=== PATIENT | female | born 1985 | race Caucasian/White ===

== ENCOUNTER 2022-09-20 21:37 | Emergency (ER) | payer MEDICAID, SELFPAY ==
[2022-09-20 21:49] VITALS: BP 133/74; PULSE 119; RESP 18; TEMP 36.6; O2SAT 99; BMI 27.6
--- NOTE | 2022-09-20 23:11 | XRR_ITS ---
PROCEDURE INFORMATION: Exam: XR Right Knee Exam date and time: 09/20/2022 11:28 PM Age: 37 years old Clinical indication: Injury or trauma; Fall; Blunt trauma; Knee; Right TECHNIQUE: Imaging protocol: Radiologic exam of the Right knee. Views: 1 or 2 views. COMPARISON: CR (LOW EXM, ) 09/20/2022 11:24 PM FINDINGS: Bones/joints: Normal. Soft tissues: Normal. XR/XR knee RT 1-2V [id number] IMPRESSION: No acute findings.
--- NOTE | 2022-09-20 23:11 | XRR_ITS ---
PROCEDURE INFORMATION: Exam: XR Right Tibia and Fibula Exam date and time: 09/20/2022 11:24 PM Age: 37 years old Clinical indication: Injury or trauma; Fall; Blunt trauma; Lower leg; Right TECHNIQUE: Imaging protocol: Radiologic exam of the Right tibia and fibula. Views: 2 views. COMPARISON: CR (LOW EXM, ) 09/20/2022 11:21 PM FINDINGS: Bones/joints: Normal. Soft tissues: Normal. XR/XR tibia fibula RT 2V [id number] IMPRESSION: No acute findings.
--- NOTE | 2022-09-20 23:11 | XRR_ITS ---
PROCEDURE INFORMATION: Exam: XR Right Ankle Exam date and time: 09/20/2022 11:30 PM Age: 37 years old Clinical indication: Injury or trauma; Fall; Blunt trauma; Ankle; Right; Injury date: 09/19/2022 TECHNIQUE: Imaging protocol: Radiologic exam of the Right ankle. Views: 3 or more views. COMPARISON: CR (LOW EXM, ) 09/20/2022 11:24 PM FINDINGS: Bones/joints: Normal. Soft tissues: Soft tissue swelling overlies the lateral malleolus. XR/XR ankle RT min 3V* [id number] IMPRESSION: There are no acute osseous findings.
--- NOTE | 2022-09-20 23:11 | XRR_ITS ---
PROCEDURE INFORMATION: Exam: XR Right Foot Exam date and time: 09/20/2022 11:21 PM Age: 37 years old Clinical indication: Injury or trauma; Fall; Blunt trauma; Foot; Right; Injury date: 09/19/2022 TECHNIQUE: Imaging protocol: Radiologic exam of the Right foot. Views: 3 or more views. COMPARISON: No relevant prior studies available. FINDINGS: Bones/joints: Normal. Soft tissues: Normal. XR/XR foot RT min 3V* [id number] IMPRESSION: No acute findings.
[2022-09-20] MEDS: ketorolac 10 mg Tablet PO (23:33)
[2022-09-20] MEDS: HYDROcodone-acetaminophen 5-325 mg Tablet 1 TAB PO (23:33)
--- NOTE | 2022-09-21 00:49 | W.ED.EXTPRO ---
Documented by User: RIMMA Bryant 09/21/22 01:44 HPI - Extremity Problem General: Chief complaint: Extremity Injury, Lower Stated complaint: right leg injury Time Seen by Provider: 09/20/22 22:55 History of Present Illness: Patient is a 37-year-old female that presents to the emergency department with complaints of right lower extremity pain. Patient reports that she twisted and fell while walking up a set of stairs. She reports hearing multiple pops in her right lower extremity Event occurred at 1430 today. Patient arrives in the emergency department with significant swelling and ecchymosis to the right lower extremity. Ecchymosis extends from just above the ankle down into the foot. Swelling is evident from mid tibia through foot No open wounds Patient is able to wiggle her toes and does have cap refill less than 2 seconds Denies previous injury to this extremity Associated symptoms: Deny chest pain, fever(s) or rash Review of Systems General: Reports: 10 or more systems reviewed and unremarkable except in HPI and below Const: Denies: fever(s), chills, change in appetite, change in weight, fatigue or malaise Eyes: Denies: change in vision, eye discomfort, eye discharge or eye redness ENMT: Denies: throat pain, enlarged tonsils, odynophagia, hoarseness, ear or mastoid pain, ear discharge, change in hearing, tinnitus, nasal discharge, nasal congestion, post nasal drip or sinus pain Card: Denies: chest pain, palpitations, irregular heart rhythm, edema, dyspnea on exertion, orthopnea or leg pain with exertion Resp: Denies: dyspnea, productive cough, non-productive cough, wheezing, stridor or chest congestion GI: Denies: abdominal pain, nausea, vomiting, dysphagia, diarrhea, constipation, bloating, GI cramping or hematochezia : Denies: flank pain, difficulty voiding, dysuria, urinary frequency, urinary urgency, urinary hesitancy, oliguria or hematuria Musc: Denies: neck pain, back pain, extremity pain, joint pain, joint swelling, joint redness, joint warmth or muscle weakness Skin/Breast: Denies: rash, pruritus, erythema, photosensitivity or new lesions Neuro: Denies: headache(s), numbness in extremities, weakness in extremities, sensory changes, lack of coordination, difficulty walking, frequent falls, dizziness, confusion, Slurred speech present, difficulty communicating thoughts, seizure-like activity or involuntary movements Endo: Denies: polyuria, polydipsia or tired all the time Danny/Lymph: Denies: easy bruising or easy bleeding Physical Exam Const: COMMON NORMALS: no acute distress, average body habitus, patient oriented x3, no limitations, healthy appearing, alert and well nourished GENERAL APPEARANCE: cooperative, comfortable and well developed; not in distress and not anxious ORIENTATION/CONSCIOUSNESS: Yes awake, Yes oriented to person, Yes oriented to place and Yes oriented to time Neck/C-Spine: COMMON NORMALS: full ROM, supple, no meningeal signs and no JVD GENERAL: Yes normal visual inspection CERVICAL SPINE: Yes cervical ROM normal Chest: COMMONS NORMALS: normal inspection of the chest Breast/axilla inspection: Yes no chest deformity, asymmetry, normal contours, no nodules, masses, tenderness Resp: COMMON NORMALS: normal respiratory effort, No retractions, No use of accessory muscles and clear to auscultation bilaterally EFFORT & INSPECTION: Yes able to speak in complete sentences, Yes symmetric chest movement, No abnormal respiratory pattern, No tachypneic and No respiratory distress AUSCULTATION: clear to auscultation bilaterally Cardio: COMMON NORMALS: no JVD, regular rate, regular rhythm and Peripheral pulses 2+ throughout RATE: regular rate RHYTHM: regular rhythm PERIPHERAL PULSES: Peripheral pulses 2+ throughout GI: COMMON NORMALS: Normal to inspection, nondistended, normoactive bowel sounds present, Soft to palpation and non-tender INSPECTION: Yes normal to inspection PALPATION: Yes Soft to palpation Back/Pelvis: COMMON NORMALS: thoracic and lumbar spine normal to inspection, no thoracic nor lumbar tenderness, thoraco-lumbar ROM normal and straight leg raise negative bilaterally GENERAL BACK: No ecchymosis THORACIC SPINE/UPPER BACK: Yes normal to inspection LUMBAR SPINE/LOWER BACK: Yes normal to inspection and Yes straight leg raise negative bilaterally Extremity: NARRATIVE EXTREMITY EXAM: Right lower extremity: Skin is clean and dry Ecchymosis and edema noted to the right lower extremity from mid tibia through the foot No wounds present Patient does have tenderness to palpation over the knee, tibia, ankle, foot Patient is able to actively range of motion knee Minimal range of motion of the ankle due to tightness and pain Patient is able to dorsiflex the foot. Difficulty with plantarflexion Patient is able to dorsiflex great toe Sensation is intact but altered. To medial, lateral, dorsal, plantar surface of the foot and first webspace DP pulses palpable and cap refill is less than 3 seconds GENERAL: Yes normal exam except as noted Neuro: COMMON NORMALS: patient oriented x3 SENSORIUM/ORIENTATION: Yes alert, Yes oriented to person, Yes oriented to place and Yes oriented to time MENINGEAL SIGNS: Yes no meningeal signs Psych: COMMON NORMALS: mental status grossly normal, Normal thought process present, cooperative, normal affect, speech normal and activity/motor behavior normal SPEECH: Yes normal speech THOUGHT PROCESS: Normal thought process present Skin: COMMON NORMALS: no rashes or lesions noted, no wounds, turgor normal, no jaundice, no petechiae and no mottling GENERAL SKIN EXAM: no rashes or lesions noted and turgor normal Course Vital Signs: Vital signs: Vital Signs Temperature 98 F 09/20/22 21:49 Pulse Rate 119 H 09/20/22 21:49 Respiratory Rate 18 09/20/22 21:49 Blood Pressure 133/74 09/20/22 21:49 Pulse Oximetry 99 09/20/22 21:49 MDM - Extremity (Nontraumatic) Medical Decision Making Patient was evaluated in the emergency department today for complaints of right ankle and foot pain. Onset at 1430 when she had a fall. She reports her leg/foot got stuck on a step. Patient has differential diagnosis includes knee, tibia, ankle, foot fracture or dislocation; ligamentous injury, soft tissue contusions Patient was treated with [place] and Toradol here in the emergency department. She was moved to a room and provided bed and ice bag. I have advised nursing staff to elevate the extremity. Patient underwent XR imaging of the right lower extremity that included knee, tibia, ankle, foot. Imaging reveals no acute findings. Patient is quite edematous and ecchymotic at this time. Her compartments are still compressible and we are able to wrinkle her skin. We will be sending her home with [place] for several days. I talked with her about putting her in a removable boot but honestly I want her to range of motion the joints. She will discharged with crutches and crutch training. I put in a case management request for orthopedic follow-up. She should follow-up if she is no better in 7 to 14 days. Patient is to return to the emergency department for new concerning or worsening symptoms Lab Data Radiology Impressions Ankle X-Ray 09/20/22 23:11 IMPRESSION: There are no acute osseous findings. Foot X-Ray 09/20/22 23:11 IMPRESSION: No acute findings. Knee X-Ray 09/20/22 23:11 IMPRESSION: No acute findings. Tibia/Fibula X-Ray 09/20/22 23:11 IMPRESSION: No acute findings. Discharge Plan Discharge Patient Disposition: Home Clinical Impression: Contusion of soft tissue, Sprain and strain Condition: Stable Prescriptions: New hydrocodone-acetaminophen 5-325 mg tablet 1 tab PO Q8H PRN (Reason: pain) Qty: 7 0RF ketorolac 10 mg tablet 10 mg PO TID PRN (Reason: pain) 5 Days Qty: 15 0RF Discharge Orders: Discharge ED (Routine); Ordered 09/21/22 Ordered By: Yamile Barker Referrals: Clifton Rios Jr, MD [Primary Care Provider] - Discharge Diet: Advance as tolerated Discharge Activity: Resume usual activity Patient Instructions: Hydrocodone/Acetaminophen (By mouth), Ketorolac (By mouth) (Toradol), Crutch Instructions (ED), Opioid Safety, Pain Management Activity Restrictions/Additional Instructions: You may weight-bear as tolerated on the right lower extremity To be too difficult to do at this time. Crutches as needed I want you to elevate and ice the extremity Follow-up with your primary care provider or orthopedic surgeon in 7 to 14 days if you are not any better Take the medications we have provided as prescribed Return to the emergency department for new concerning or worsening symptoms Stand Alone Forms: Work/School Release Coding Level of Care Code ED Block And Case Maker for Chg Fwd Exam Comprehensive Medical Decision Making Low Complexity Documented by User: Toni Ocampo DO 09/21/22 03:37 HPI - Extremity Problem General: Chief complaint: Extremity Injury, Lower Stated complaint: right leg injury Time Seen by Provider: 09/20/22 22:55 Course Vital Signs: Vital signs: Vital Signs Temperature 98 F 09/20/22 21:49 Pulse Rate 119 H 09/20/22 21:49 Respiratory Rate 18 09/20/22 21:49 Blood Pressure 133/74 09/20/22 21:49 Pulse Oximetry 99 09/20/22 21:49 MDM - Extremity (Nontraumatic) Medical Decision Making Patient was evaluated in the emergency department today for complaints of right ankle and foot pain. Onset at 1430 when she had a fall. She reports her leg/foot got stuck on a step. Patient has differential diagnosis includes knee, tibia, ankle, foot fracture or dislocation; ligamentous injury, soft tissue contusions Patient was treated with [place] and Toradol here in the emergency department. She was moved to a room and provided bed and ice bag. I have advised nursing staff to elevate the extremity. Patient underwent XR imaging of the right lower extremity that included knee, tibia, ankle, foot. Imaging reveals no acute findings. Patient is quite edematous and ecchymotic at this time. Her compartments are still compressible and we are able to wrinkle her skin. We will be sending her home with [place] for several days. I talked with her about putting her in a removable boot but honestly I want her to range of motion the joints. She will discharged with crutches and crutch training. I put in a case management request for orthopedic follow-up. She should follow-up if she is no better in 7 to 14 days. Patient is to return to the emergency department for new concerning or worsening symptoms This patient was originally seen by STEFANIE Villar.? I agree with her history, evaluation, and treatment. Lab Data Radiology Impressions Ankle X-Ray 09/20/22 23:11 IMPRESSION: There are no acute osseous findings. Foot X-Ray 09/20/22 23:11 IMPRESSION: No acute findings. Knee X-Ray 09/20/22 23:11 IMPRESSION: No acute findings. Tibia/Fibula X-Ray 09/20/22 23:11
--- NOTE | 2022-09-23 08:59 | DCPLANNER ---
Addendum entered by Dixie Sotelo 09/26/22 11:20: accreditation manager received the following message from the ortho clinic regarding follow up appointment: Dr. Ramey sent to Dr. Boles Attempted to call pt to set up apt/mailed letter for pt to call back and schedule accreditation manager called phone number [phone] left voicemail and phone number [phone] left voicemail Original Note: accreditation manager had message to schedule a follow up appointment for patient with ortho. accreditation manager sent patients information to the front office staff at ortho. Patients information will be printed and reviewed. Clinic will call patient with appointment information.
== END 2022-09-21 01:50 | disposition home or self-care (01) ==
PROVIDERS: Emergency Provider Nurse Practitioner; Family Provider Pediatrics Adolescent Medicine; PCP Pediatrics Adolescent Medicine
DX: S93.401A Sprain of unspecified ligament of right ankle, initial encounter (principal); S96.911A Strain of unspecified muscle and tendon at ankle and foot level, right foot, initial encounter; T14.8XXA Other injury of unspecified body region, initial encounter; X50.1XXA Overexertion from prolonged static or awkward postures, initial encounter
CPT/HCPCS: 73560; 73590; 73610; 73630; 99284; E0114

== ENCOUNTER 2024-04-14 07:49 | Inpatient (IN) | payer SELFPAY ==
[2024-04-14] VITALS (14 sets, daily range): BP systolic 95–117; BP diastolic 46–82; PULSE 113–123; RESP 12–22; TEMP 37.2–37.9; O2SAT 97–100
--- NOTE | 2024-04-14 08:02 | ED_ITS ---
HPI - Abdominal Pain 2 General: Chief Complaint: Abdominal Pain Stated Complaint: abd pain Time Seen by Provider: 04/14/24 07:54 History of Present Illness: 39-year-old female who presents to the e mergency room with complaints of abdominal pain. She refers most of that to the left lower quadrant of her abdomen. This been going on for 3 days. She states it radiates up into her left flank. She denies any dysuria urgency or frequency no hematuria. No previous abdominal surgeries no history of nephrolithiasis. She is not had any nausea or vomiting. Describes the pain is very cramping in nature. She is tried several [id number] medication including that Gas-X Pepto-Bismol enemas laxatives thinking she might have been constipated none of which provided significant relief. Patient is on medications for depression and anxiety denies the use of alcohol or marijuana. She denies hematochezia melena hematemesis coffee-ground emesis. Subjectively she has felt like she had a fever but has not checked it. No long-term outdoor heat exposure. Associated Symptoms: Denies chills, dysuria and fever(s) Review of Systems 2 Const: Denies: fever(s) or chills Card: Denies: chest pain Resp: Denies: dyspnea GI: Denies: abdominal pain : Denies: dysuria, urinary frequency or urinary urgency Musc: Denies: neck pain or back pain Skin/Breast: Denies: rash PFSH ED 2 PFSH: Medical History Depression with anxiety Surgical History No significant past surgical history Family History Other Cancer Social History Smoking and tobacco/nicotine status: former use of tobacco/nicotine Alcohol intake: current Alcohol intake frequency: 0-2 Drinks per Day Substance/Drug Use: current Substance/Drug use type: Marijuana Physical Exam 2 Const: GENERAL APPEARANCE: cooperative ORIENTATION/CONSCIOUSNESS: Yes awake, Yes oriented to person, Yes oriented to place and Yes oriented to time HENMT: COMMON NORMALS: normocephalic, atraumatic and hearing grossly normal bilaterally HEAD & SCALP: normocephalic and atraumatic Resp: COMMON NORMALS: normal respiratory effort, No retractions, No use of accessory muscles and clear to auscultation bilaterally AUSCULTATION: clear to auscultation bilaterally Cardio: COMMON NORMALS: regular rate, regular rhythm and No murmurs present (Cardio) RATE: regular rate RHYTHM: regular rhythm GI: COMMON NORMALS: Soft to palpation and No hepatosplenomegaly present A USCULTATION: Yes normoactive bowel sounds PALPATION: Yes Soft to palpation, No Tenderness to palpation present (GI), No Guarding due to palpation present (GI) and Yes No hepatosplenomegaly present Extremity: COMMON NORMALS: normal to inspection, capillary refill normal, no clubbing, cyanosis or edema, no calf tenderness and no pedal edema Neuro: SENSORIUM/ORIENTATION: Yes oriented to person, Yes oriented to place and Yes oriented to time Skin: COMMON NORMALS: no rashes or lesions noted GENERAL SKIN EXAM: no rashes or lesions noted Course 2 Vital Signs: Vital signs: Vital Signs Temperature 99.4 F 04/14/24 08:01 Pulse Rate 113 H 04/14/24 14:31 Respiratory Rate 17 04/14/24 15:49 Blood Pressure 105/62 04/14/24 14:31 Pulse Oximetry 100 04/14/24 14:31 Oxygen Delivery Me thod Room Air 04/14/24 15:10 MDM - Abdominal Pain Medical Decision Making Pyelonephritis based on laboratory testing she is also tachycardic having significant mount of pain CT did not show any abscess or ureteral obstruction discussed with hospitalist will admit on IV antibiotics IV fluids pain medications Medical Records I reviewed the patient's medical records. Lab Data I reviewed the patient's lab results. 04/14/24 08:10 04/14/24 08:10 Labs/Radiology: Radiology Impressions Abdomen/Pelvis CT 04/14/24 08:30 IMPRESSION: 1. Enlarged LEFT kidney with inflammatory stranding and edema compatible with pyelonephritis. Recommend correlation for UTI. 2. No obstructing renal or ureteral calculi. 3. 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 Abdomen Ultrasound 04/14/24 08:51 IMPRESSION: 1. Coarse hepatic echogenicity likely due to fatty infiltration. Liver size upper limits of normal. 2. Normal gallbladder. 3. Normal common bile duct. 4. No hydronephrosis in either kidney. 5. LEFT renal parenchymal calculus measuring 9 x 8 x 7 mm Laboratory Results WBC 11.02 10^3/uL (3.29-11.43) 04/14/24 08:10 RBC 4.17 10^6/uL (3.85-5.65) 04/14/24 08:10 Hgb 12.80 g/dL (11.27-16.99) 04/14/24 08:10 Hct 37.3 % (36-47) 04/14/24 08:10 MCV 89.4 fl (85-98) 04/14/24 08:10 MCH 30.7 pg (27-33) 04/14/24 08:10 MCHC 34.3 g/dL (30-55) 04/14/24 08:10 RDW 12.6 % (12.1-15.1) 04/14/24 08:10 Plt Count 264 10^3/cmm (157-399) 04/14/24 08:10 MPV 9.6 fL (7.4-10.4) 04/14/24 08:10 Neut % (Auto) 79.5 % 04/14/24 08:10 Lymph % (Auto) 10.4 % 04/14/24 08:10 [place] % (Auto) 9.2 % 04/14/24 08:10 Eos % (Auto) 0.2 % 04/14/24 08:10 Baso % (Auto) 0.4 % 04/14/24 08:10 Neut # (Auto) 8.77 10^3/uL (1.8-7.7) H 04/14/24 08:10 Lymph # (Auto) 1.2 10^3/uL (0.8-4.8) 04/14/24 08:10 [place] # (Auto) 1.0 10^3/uL (0.2-0.9) H 04/14/24 08:10 Eos # (Auto) 0.0 10^3/uL (0.0-0.8) 04/14/24 08:10 Baso # (Auto) 0.0 10^3/uL (0.0-0.1) 04/14/24 08:10 Nucleated RBC % (auto) 0 % 04/14/24 08:10 Nucleated RBCs # 0.0 /100WBC 04/14/24 08:10 Sodium 134 mmol/L (136-145) L 04/14/24 08:10 Potassium 3.5 mmol/L (3.5-5.1) 04/14/24 08:10 Chloride 99 mmol/L (98-107) 04/14/24 08:10 Carbon Dioxide 23 mmol/L (22-29) 04/14/24 08:10 Anion Gap 15.5 (5-19) 04/14/24 08:10 BUN 4 mg/dL (6-20) L 04/14/24 08:10 Creatinine 0.6 mg/dL (0.5-0.9) 04/14/24 08:10 GFR Calculation 112.5 mL/min (90-130) 04/14/24 08:10 Glucose 114 mg/dL (65-115) 04/14/24 08:10 Calculated Osmolality 276 mOsm/kg (285-295) L 04/14/24 08:10 Calcium 8.8 mg/dL (8.5-10.5) 04/14/24 08:10 Total Bilirubin 0.7 mg/dL (0.15-1.2) 04/14/24 08:10 AST 81 U/L (0-32) H 04/14/24 08:10 ALT 130 U/L (0-33) H 04/14/24 08:10 Alkaline Phosphatase 188 U/L (35-105) H 04/14/24 08:10 Total Protein 7.3 g/dL (6.6-8.7) 04/14/24 08:10 Albumin 4.1 g/dL (3.5-5.2) 04/14/24 08:10 Globulin 3.2 g/dL (1.3-4.6) 04/14/24 08:10 TSH 0.33 uIU/mL (0.27-4.20) 04/14/24 08:10 HCG, Qual Negative (Negative) 04/14/24 08:10 Urine Color Dark yellow (Yellow) A 04/14/24 12:50 Urine Appearance Clear (CLEAR) 04/14/24 12:50 Urine pH 6.0 (5-7) 04/14/24 12:50 Ur Specific [place] 1.021 (1.005-1.030) 04/14/24 12:50 Urine Protein 1+ (Negative) A 04/14/24 12:50 Urine Glucose (UA) Negative (Normal) 04/14/24 12:50 Urine Ketones 1+ (Negative) H 04/14/24 12:50 Urine Blood Negative (Negative) 04/14/24 12:50 Urine Nitrate Positive (Negative) A 04/14/24 12:50 Urine Bilirubin 1+ (Negative) H 04/14/24 12:50 Urine Urobilinogen 1.0 mg/dL (Negative) 04/14/24 12:50 Ur Leukocyte Esterase Trace (Negative) A 04/14/24 12:50 Urine RBC 0-2 /hpf (0-2) 04/14/24 12:50 Urine WBC 6-10 /hpf (0-5) 04/14/24 12:50 Ur Squamous Epith Cells 6-10 /hpf (0-5) 04/14/24 12:50 Amorphous Sediment Not Reportable 04/14/24 12:50 Urine Bacteria 4+ /hpf (NONE) H 04/14/24 12:50 Hyaline Casts 0.40 /lpf 04/14/24 12:50 Hepatitis A IgM Ab Non-reactive (Nonreactive) 04/14/24 08:10 Hep Bs Antigen Non-reactive (Nonreactive) 04/14/24 08:10 Hep B Core IgM Ab Non-reactive (Nonreactive) 04/14/24 08:10 Hepatitis C Antibody Non-reactive (Nonreactive) 04/14/24 08:10 All radiology interpretation(s) finalized by discharge Discharge Plan Discharge Patient Disposition: Admitted As Inpatient Admit Provider: Russell Morse Clinical Impression: Acute pyelonephritis Condition: Stable Coding Level of Care Code ED Pediatric Care Coordinator for Abel Owen
[2024-04-14] MEDS: sodium chloride 0.9% 1,000 ML 999 ML IV (08:23)
[2024-04-14] MEDS: ondansetron 2 mg/ML SDV 2 mL 4 MG IVP (08:24)
[2024-04-14] MEDS: morphine 4 mg/mL SDV 1 mL IVP ×3 (08:24→11:44)
[2024-04-14 08:27] LABS: Basophils % 0.4 %; Eosinophils % 0.2 %; Hematocrit 37.3 % (36-47); Lymphocytes # 1.2 10^3/uL (0.8-4.8); Lymphocytes % 10.4 %; Mean Corpuscular HGB Conc 34.3 g/dL (30-55); Mean Corpuscular Hemoglobin 30.7 pg (27-33); Mean Corpuscular Volume 89.4 fl (85-98); Mean Platelet Volume 9.6 fL (7.4-10.4); Monocytes % 9.2 %; Neutrophils # 8.77 10^3/uL (1.8-7.7); Neutrophils % 79.5 %; Nucleated Red Blood Cells % 0 %; Platelet Count 264 10^3/cmm (157-399); Red Blood Count 4.17 10^6/uL (3.85-5.65); Red Cell Distribution Width 12.6 % (12.1-15.1); White Blood Count 11.02 10^3/uL (3.29-11.43)
--- NOTE | 2024-04-14 08:30 | CT_ITS ---
WS: [id number] CT ABDOMEN PELVIS TECHNIQUE: Noncontrast CT of the abdomen and pelvis with coronal and sagittal reformatted images. CLINICAL INFORMATION: flank pain COMPARISON: Ultrasound earlier today DLP: 570.[address] scans at [facility] use at least one of these dose optimization techniques: automated e xposure control; mA and/or kV adjustment per patient size (includes targeted exams where dose is matc hed to clinical indication); or iterative reconstruction. FINDINGS: Mild hepatomegaly. Mild splenomegaly. Spleen measures 12.5 cm [id number]. Normal GE junction. Nonco ntrast pancreas appears normal. Adrenal glands appear normal. No hydronephrosis in either kidney. Inflammatory stranding and edema about the LEFT kidney suspicious for pyelonephritis with enlarged LEFT kidney. LEFT ureter is decompressed. No obstructing LEFT renal or ureteral calculi. Fatty lesion LEFT kidney corresponds to the echogenic lesion on the recent ultr asound compatible with angiomyolipoma measuring 6 mm rather than parenchymal calculus. No obstructing RIGHT renal or ureteral calculi. Normal sigmoid colon. No evidence of small or large bowel obstruction. Normal caliber abdominal aorta . Retroverted uterus. Normal appendix. No other acute findings. CT/CT kidney stone [id number] IMPRESSION: 1. Enlarged LEFT kidney with inflammatory stranding and edema compatible with pyelonephritis. Recommend correlation for UTI. 2. No obstructing renal or ureteral calculi. 3. 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
[2024-04-14 08:44] LABS: Alanine Aminotransferase 130 U/L (0-33); Albumin Level 4.1 g/dL (3.5-5.2); Alkaline Phosphatase 188 U/L (35-105); Anion Gap 15.5 (5-19); Aspartate Amino Transferase 81 U/L (0-32); Blood Urea Nitrogen 4 mg/dL (6-20); Calcium 8.8 mg/dL (8.5-10.5); Carbon Dioxide 23 mmol/L (22-29); Chloride 99 mmol/L (98-107); Creatinine Clr Calc Pharmacy 122.5497; Globulin 3.2 g/dL (1.3-4.6); Glomerular Filtration Rate 112.5 mL/min (90-130); Glucose 114 mg/dL (65-115); Osmolality Calculated 276 mOsm/kg (285-295); Potassium 3.5 mmol/L (3.5-5.1); Sodium 134 mmol/L (136-145); Total Bilirubin 0.7 mg/dL (0.15-1.2); Total Protein 7.3 g/dL (6.6-8.7)
--- NOTE | 2024-04-14 08:51 | US_ITS ---
WS: [id number] ULTRASOUND ABDOMEN CLINICAL INFORMATION: abd pain/elevated LFTs, T bili COMPARISON: None. FINDINGS: Liver Size: Upper limits of normal Craniocaudal length: 15.5 cm. Echogenicity: Coarse Surface nodularity: None. Mass (size and location): None. Bile ducts Intrahepatic ducts: Normal. Common bile duct diameter: 0.3 cm. Gallbladder Normal. Gallstones: None. Gallbladder sludge: None. Gallbladder wall thickening: None. Pericholecystic fluid: None. Sonographic [place] sign: Absent. Pancreas Normal as visualized. Spleen Splenomegaly: None. Craniocaudal length: 10.8 cm. Right kidney: Normal. Hydronephrosis: None. Size: 11.5 cm x 6.4 cm x 5.7 cm Left kidney: LEFT renal parenchymal calculus described below Hydronephrosis: None. Size: 9.9 cm x 4.8 cm x 5.6 cm. Abdominal aorta and IVC Visualized portions are normal. Ascites: None. US/US abdomen complete* [id number] IMPRESSION: 1. Coarse hepatic echogenicity likely due to fatty infiltration. Liver size up per limits of normal. 2. Normal gallbladder. 3. Normal common bile duct. 4. No hydronephrosis in either kidney. 5. LEFT renal parenchymal calculus measuring 9 x 8 x 7 mm
[2024-04-14 09:35] LABS: Bilirubin Urine 1+ (Negative); Blood Urine Negative (Negative); Charge for UA Resulting for Rev; Glucose Urine UA Negative (Normal); Ketones Urine 1+ (Negative); Leukocyte Esterase Urine Trace (Negative); Nitrate Urine Positive (Negative); Protein Urine 2+ (Negative); Specific Gravity, Urine 1.025 (1.005-1.030); Urine Appearance Cloudy (CLEAR); Urine Color Dark Yellow (Yellow); pH Urine 6.5 (5-7)
[2024-04-14 09:39] LABS: HCG, Serum Qual Negative (Negative)
[2024-04-14 09:40] LABS: Hyaline Casts Urine 2.46 /lpf; RBC Urine 0-2 /hpf (0-2); Squamous Epithelial Cell Urine 21-50 /hpf (0-5)
[2024-04-14 09:49] LABS: Bacteria Urine 4+ /hpf
[2024-04-14] MEDS: cefTRIAXone 1,000 mg SDV 1000 MG IVP ×2 (11:33→22:29)
--- NOTE | 2024-04-14 12:11 | P.HP_ITS ---
Providers/Chief Complaint 2 Admitting Physician: Russell Morse MD, hospitalist Primary Care Provider: Amber Kiran DO Chief Complaint: abd pain History of Present Illness Swathi Gill is a 39 year old female with history of depression and anxiety presenting from home with left flank pain for the last 3 days, subjective fever, nausea but no vomiting. She had been trying to take medication for constipation even though she was not for sure she was constipated as well as some antacid. She has not had any burning with urination, history of resistant urinary tract infection, hospitalization for urinary tract infection. She does report renal stones run in her family. She has had some abdominal pain, initially starting all over but now on the left flank and left upper quadrant and left upper back. Review of Systems 2 General: Reports: 10 or more systems reviewed and unremarkable except in HPI and below Card: Denies: chest pain Resp: Denies: dyspnea GI: Reports: abdominal pain and nausea; Denies: vomiting Medications/Allergies Home Medications Medication Instructions Recorded Confirmed Last Taken Type alprazolam 1 mg tablet 1 mg PO BEDTIME PRN Anxiety 04/14/24 04/14/24 Unknown History phentermine 37.5 mg tablet 37.5 mg PO QAM 04/14/24 04/14/24 04/13/24 History quetiapine 200 mg tablet,extended 200 mg PO QPM 04/14/24 04/14/24 04/13/24 History release 24 hr venlafaxine 37.5 mg 37.5 mg PO DAILY 04/14/24 04/14/24 04/13/24 History capsule,extended release 24 hr (Effexor XR) Allergies Allergy/AdvReac Type Severity Reaction Status Date / Time No Known Allergies Allergy Verified 04/14/24 08:22 PFSH Acute 2 PFSH: Medical History Depression with anxiety Surgical History No significant past surgical history Family History Other Cancer Social History (Updated 04/14/24 @ 12:14 by Russell Morse MD) Smoking and tobacco/nicotine status: former use of tobacco/nicotine Alcohol intake: current Alcohol intake frequency: 0-2 Drinks per Day Substance/Drug Use: current Substance/Drug use type: Marijuana Other [facility] information: Supplemental [facility] Information: Reports she vapes. Vitals/I&O/Wt Last Vital Signs Temp 99.4 F 04/14/24 08:01 Pulse 123 H 04/14/24 08:01 Resp 18 04/14/24 11:44 BP 106/63 04/14/24 08:01 Pulse Ox 99 04/14/24 11:44 O2 Del Method Room Air 04/14/24 08:01 04/13/24 04/14/24 04/14/24 22:59 06:59 14:59 Intake Total 1000 / 1000 Balance 1000 / 1000 Weight last 48 hrs Weight 72.575 kg Physical Exam 2 Narrative: General exam is white female, conversive and pleasant. Tachycardia is noted. This is sinus tachycardia on the bedside monitor. Temperature is 99.4. HEENT: Atraumatic normocephalic. Oropharynx is clear. Neck is supple no lymphadenopathy thyromegaly Cardiovascular tachycardic, no murmur Lungs clear Abdomen is soft, tender mainly on the left upper quadrant, left back CVA tenderness. exam is deferred Extremities no sinus clubbing edema, cap refill brisk Skin no rash Neuro no focal deficits. Data 04/14/24 08:10 04/14/24 08:10 Other Labs: LFTs are elevated with AST of 81, ALT 130, alk phos 188. Albumin and calcium are normal. Urinalysis initially demonstrates 2+ protein, positive nitrates, 0- 2 reds and 11-20 whites but a significant number of squamous. The emergency department physician has alerted me he is obtaining another urinalysis through catheterization, and this will be sent for culture as well. I have ordered a blood culture, TSH, hepatitis panel Abdominal ultrasound was done first demonstrating likely fatty liver, normal gallbladder and duct, no hydronephrosis and a left renal parenchymal calculus. 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 I reviewed this as well. A&P Assessment and plan (1) Acute pyelonephritis: Patient has evidence of acute pyelonephritis. She has had fever at home, nausea, left flank pain and now a CT scan which demonstrates findings consistent with left pyelonephritis. There is no evidence of obstruction. She has received IV fluids to the emergency department, and still has nausea, continued pain, and elevated heart rate. Although white blood cell count is normal, and heart rate may be elevated secondary to pain, it is important to treat this fully aware of dehydration and worsening of her clinical status does not occur. Check blood culture Urine culture Rocephin 1 g IV every 12 hours Continued hydration CBC, CMP, magnesium in the morning Pain control with Dilaudid, nausea control with ondansetron Plan Transaminitis. Check TSH, acute hepatitis panel, consider outpatient follow-up History of depression/anxiety. Continue home medications. Low risk for DVT, no prophylaxis needed Attestations 2 Medical Necessity Statement*: Will require less than 2 midnight stay for evaluation and treatment of acute pyelonephritis with abnormal vital signs. Diagnoses Acute pyelonephritis N10 Time Spent (min) 53
[2024-04-14 12:39] LABS: Thyroid Stimulating Hormone 0.33 uIU/mL (0.27-4.20)
[2024-04-14 12:44] LABS: Hepatitis A Antibody IgM Non-Reactive (Nonreactive); Hepatitis B Core IgM Non-Reactive (Nonreactive); Hepatitis B Surface Antigen Non-Reactive (Nonreactive); Hepatitis C Virus Antibody Non-Reactive (Nonreactive)
[2024-04-14 13:02] LABS: Charge for UA Resulting for Rev
[2024-04-14 13:08] LABS: Bilirubin Urine 1+ (Negative); Blood Urine Negative (Negative); Glucose Urine UA Negative (Normal); Ketones Urine 1+ (Negative); Leukocyte Esterase Urine Trace (Negative); Nitrate Urine Positive (Negative); Protein Urine 1+ (Negative); Specific Gravity, Urine 1.021 (1.005-1.030); Urine Appearance Clear (CLEAR); Urine Color Dark Yellow (Yellow)
[2024-04-14 13:16] LABS: Bacteria Urine 4+ /hpf; RBC Urine 0-2 /hpf (0-2)
[2024-04-14] MEDS: sodium chloride 0.9% 1,000 ML 150 ML IV ×2 (15:44→22:31)
[2024-04-14] MEDS: HYDROmorphone 1 mg/mL INJ 1 mL IVP ×2 (15:49→19:27)
[2024-04-14] MEDS: quetiapine XR (24HR) 50 mg Tablet 200 MG PO (18:13)
[2024-04-14] MEDS: docusate sodium 100 mg Capsule PO (18:14)
[2024-04-14] MEDS: lidocaine 2% viscous 15 ML, aluminum-mag hydrox-simethicon 30 ML, sucralfate oral liq 1 GM PO (21:23)
[2024-04-14] MEDS: ALPRAZolam 0.5 mg Tablet 1 MG PO (21:25)
[2024-04-15] VITALS (10 sets, daily range): BP systolic 96–121; BP diastolic 58–79; PULSE 101–115; RESP 15–22; TEMP 36.8–37.6; O2SAT 94–97
[2024-04-15] MEDS: HYDROmorphone 1 mg/mL INJ 1 mL IVP ×3 (04:11→23:43)
[2024-04-15] MEDS: sodium chloride 0.9% 1,000 ML 150 ML IV ×3 (05:17→21:24)
[2024-04-15 05:34] LABS: Basophils % 0.7 %; Eosinophils % 0.7 %; Hematocrit 30.5 % (36-47); Lymphocytes # 1.4 10^3/uL (0.8-4.8); Lymphocytes % 25.5 %; Mean Corpuscular HGB Conc 33.1 g/dL (30-55); Mean Corpuscular Hemoglobin 30.1 pg (27-33); Mean Platelet Volume 9.8 fL (7.4-10.4); Monocytes # 0.7 10^3/uL (0.2-0.9); Monocytes % 13.2 %; Neutrophils # 3.33 10^3/uL (1.8-7.7); Neutrophils % 59.5 %; Nucleated Red Blood Cells % 0 %; Platelet Count 206 10^3/cmm (157-399); Red Blood Count 3.35 10^6/uL (3.85-5.65); Red Cell Distribution Width 12.7 % (12.1-15.1)
[2024-04-15 05:54] LABS: Alanine Aminotransferase 180 U/L (0-33); Albumin Level 3.1 g/dL (3.5-5.2); Alkaline Phosphatase 210 U/L (35-105); Anion Gap 12.7 (5-19); Aspartate Amino Transferase 127 U/L (0-32); Blood Urea Nitrogen 4 mg/dL (6-20); Calcium 7.6 mg/dL (8.5-10.5); Carbon Dioxide 21 mmol/L (22-29); Chloride 108 mmol/L (98-107); Creatinine Clr Calc Pharmacy 153.2641; Globulin 2.4 g/dL (1.3-4.6); Glomerular Filtration Rate 138.8 mL/min (90-130); Glucose 136 mg/dL (65-115); Magnesium 1.7 mg/dL (1.7-2.3); Osmolality Calculated 285 mOsm/kg (285-295); Potassium 3.7 mmol/L (3.5-5.1); Sodium 138 mmol/L (136-145); Total Bilirubin 0.4 mg/dL (0.15-1.2); Total Protein 5.5 g/dL (6.6-8.7)
[2024-04-15] MEDS: venlafaxine ER (24HR) 37.5 mg Capsule PO (08:53)
[2024-04-15] MEDS: docusate sodium 100 mg Capsule PO ×2 (08:53→17:10)
[2024-04-15] MEDS: oxyCODONE 5 mg IR Tab/Cap PO ×2 (08:53→17:09)
--- NOTE | 2024-04-15 08:55 | PC.CHAP ---
Pastoral Care Encounter/Spiritual Assessment Type of Contact [] Declined progressive assembler and fitter visit [] Patient/Family/Request visit [] Outpatient visit [] Follow-up visit [] Physician referral [] Code/Alert [x] Routine visit [] Staff referral [] Actively dying [] Patient sleeping [] Family support [] [] Out of room [] Palliative care [] [] Receiving care in room [] Pre-surgical visit [] Trauma [] Long length of stay [] ICU visit [] Other: Relational/Emotional Strength [x] Patient feels connected with others/family/visitors/staff [] Distress [] Loneliness/isolation [] Abandonment Spirituality of Patient [x] Person of Cari [] Attends Gnosticism of their Cari [x] Believes in Prayer [] Reads Bible or Islam materials [] There are Spiritual issues to be addressed Registered Nurse Practitioner Interventions [x] Prayer [x] Active listening [] Non-anxious presence [x] Spiritual/emotional support [] Crisis/trauma care [] Spiritual counseling [] Bereavement support [] Provided bereavement packet [] Provided Bible/devotional materials [] Provided toy/stuffed animal, coloring book to patient or family member [] Provided Communion [] Anointing/Sharon [] Salvation [x] Completed spiritual assessment [] Other: Impact on Illness or Injury [] Angry [] Fearful [] Anxious [] Often cries [] Exhaustion [] Unable to work [] Unable to attend rastafarian [] Unable to walk/stand [] Unable to read [] Unable to drive [] Unable to eat/drink [] Unable to sleep [] Unable to be with family [] Patient intubated [] Other: Summary Time spent with patient 5 min
--- NOTE | 2024-04-15 09:04 | P.PN_ITS ---
Subjective 2 Subjective: Still having significant pain. Feels a little nauseous. Tmax 100.2 but still having low-grade temperatures. Still tachycardic. Medications: Reviewed: Yes Vitals/I&O/Wt Last Vital Signs Temp 99.6 F 04/15/24 07:32 Pulse 115 H 04/15/24 07:32 Resp 15 04/15/24 07:32 BP 106/65 04/15/24 07:32 Pulse Ox 97 04/15/24 07:32 O2 Del Method Room Air 04/15/24 07:32 04/14/24 04/15/24 04/15/24 22:59 06:59 14:59 Intake Total 1360 / 2360 1000 / 3360 Output Total 200 / 200 Balance 1160 / 2160 1000 / 3160 Weight last 48 hrs Weight 78.953 kg Weight 74.661 kg Weight 72.575 kg Physical Exam 2 Narrative: General exam is white female, conversive and pleasant. Still tachycardic Neck is supple no lymphadenopathy thyromegaly Cardiovascular tachycardic, no murmur Lungs clear Abdomen is soft, tender mainly on the left upper quadrant, left back CVA tenderness. exam is deferred Extremities no sinus clubbing edema, cap refill brisk Data 04/15/24 05:11 04/15/24 05:11 Micro: Microbiology 04/14/24 12:34 Blood Culture - Preliminary Blood SPECIMEN COLLECTED 04/14/24 12:30 Blood Culture - Preliminary Blood SPECIMEN COLLECTED A&P Assessment and plan (1) Acute pyelonephritis: Patient has evidence of acute pyelonephritis. She has had fever at home, nausea, left flank pain and now a CT scan which demonstrates findings consistent with left pyelonephritis. There is no evidence of obstruction. She has received IV fluids to the emergency department, and still has nausea, continued pain, and elevated heart rate. Although white blood cell count is normal, and heart rate may be elevated secondary to pain, it is important to treat this fully aware of dehydration and worsening of her clinical status does not occur. Blood and urine cultures pending Continue Rocephin 1 g IV every 12 hours Continued hydration, reduce rate slightly CBC, CMP, magnesium in the morning Pain control with Dilaudid, nausea control with ondansetron Changed to regular admission. Significant temperature elevation in the last 24 hours, still abnormal vital signs with tachycardic, still having pain. Plan Transaminitis. TSH and hepatitis panel negative. LFTs still up. Encouraged not to drink. Outpatient follow-up. Repeat tomorrow. History of depression/anxiety. Continue home medications. Low risk for DVT, no prophylaxis needed Attestations 2 Medical Necessity Statement*: Needs continued hospital stay for IV antibiotics secondary to pyelonephritis. Diagnoses Acute pyelonephritis N10 Time Spent (min) 34
[2024-04-15] MEDS: cefTRIAXone 1,000 mg SDV 1000 MG IVP ×2 (11:11→21:24)
[2024-04-15] MEDS: quetiapine XR (24HR) 50 mg Tablet 200 MG PO (17:10)
[2024-04-16] VITALS (7 sets, daily range): BP systolic 96–122; BP diastolic 61–79; PULSE 93–101; RESP 16–20; TEMP 36.4–36.7; O2SAT 94–97
[2024-04-16] MEDS: ALPRAZolam 0.5 mg Tablet 1 MG PO (00:33)
[2024-04-16 03:45] LABS: Basophils % 0.7 %; Eosinophils # 0.1 10^3/uL (0.0-0.8); Eosinophils % 3.2 %; Lymphocytes # 1.6 10^3/uL (0.8-4.8); Lymphocytes % 38.4 %; Mean Corpuscular HGB Conc 32.4 g/dL (30-55); Mean Corpuscular Hemoglobin 30.3 pg (27-33); Mean Corpuscular Volume 93.7 fl (85-98); Monocytes # 0.6 10^3/uL (0.2-0.9); Monocytes % 13.4 %; Neutrophils # 1.81 10^3/uL (1.8-7.7); Neutrophils % 44.1 %; Nucleated Red Blood Cells % 0 %; Platelet Count 229 10^3/cmm (157-399); Red Blood Count 3.63 10^6/uL (3.85-5.65); Red Cell Distribution Width 12.8 % (12.1-15.1); White Blood Count 4.11 10^3/uL (3.29-11.43)
[2024-04-16 04:13] LABS: Alanine Aminotransferase 185 U/L (0-33); Albumin Level 3.2 g/dL (3.5-5.2); Alkaline Phosphatase 241 U/L (35-105); Anion Gap 13.7 (5-19); Aspartate Amino Transferase 79 U/L (0-32); Blood Urea Nitrogen 4 mg/dL (6-20); Calcium 8.4 mg/dL (8.5-10.5); Carbon Dioxide 22 mmol/L (22-29); Chloride 108 mmol/L (98-107); Creatinine Clr Calc Pharmacy 191.5801; Globulin 2.8 g/dL (1.3-4.6); Glomerular Filtration Rate 179.6 mL/min (90-130); Glucose 131 mg/dL (65-115); Osmolality Calculated 289 mOsm/kg (285-295); Potassium 3.7 mmol/L (3.5-5.1); Sodium 140 mmol/L (136-145); Total Bilirubin 0.3 mg/dL (0.15-1.2)
[2024-04-16] MEDS: HYDROmorphone 1 mg/mL INJ 1 mL IVP (04:18)
[2024-04-16] MEDS: sodium chloride 0.9% 1,000 ML 150 ML IV (04:19)
[2024-04-16] MEDS: venlafaxine ER (24HR) 37.5 mg Capsule PO (08:03)
[2024-04-16] MEDS: oxyCODONE 5 mg IR Tab/Cap PO (08:03)
[2024-04-16] MEDS: docusate sodium 100 mg Capsule PO (08:03)
[2024-04-16] MEDS: cefTRIAXone 1,000 mg SDV 1000 MG IVP (11:12)
--- NOTE | 2024-04-16 11:48 | PM.DCS ---
Discharge Providers Date of Admission: 04/14/24 14:00 Date of Discharge: April 16, 2024 Attending Provider at Admission: Russell Morse MD Attending Provider at Discharge: Russell Morse MD Primary Care Provider: Amber Kiran DO Diagnoses at Discharge Discharge Diagnosis (1) Acute pyelonephritis: Status: Acute Reason for Visit Reason for Visit: abd pain Hospital Course Hospital Course Patient is a 39-year-old white female who presented to the hospital with fever, back pain, flank pain for the last 3 days. Her urinalysis was abnormal, temperature elevation was noted in the ER, CT scan of her abdomen and pelvis demonstrated no obvious obstruction, but the left kidney consistent with pyelonephritis. There was also a fatty lesion there consistent with angiomyolipoma. An ultrasound was done initially with follow-up CT. She was hospitalized and placed on ceftriaxone, hydrated secondary to nausea and poor oral intake prior to hospitalization, and given medication for pain control. On April 15 she still had significant pain, urine was growing gram-negative rods, she was still nauseous, and she had had a temperature elevation in the last 24 hours. Hospitalization continued. By April 16 she was feeling better. She was still having pain but was able to eat and drink without difficulty. White blood cell count was normal. Urine had come back E. coli, sensitive to ciprofloxacin. I discussed possible discharge with the patient. She very much wanted discharge home. She is still having some left flank pain, but this can be managed with oral pain medication. She will finish up 11 days of ciprofloxacin. Heart rate that was markedly elevated on admission, was within normal range at discharge as well as temperature. She is to return for any worsening, follow-up with her primary care provider 3 to 5 days, notify her provider if she should have severe diarrhea that is persistent especially after discontinuation of antibiotic. She was given an opportunity to ask questions, and agreed with the plan. Physical Exam Narrative: General exam no distress Neck is supple Cardiovascular regular rate and rhythm Lungs clear Abdomen is soft, positive bowel sounds Extremities no sinus clubbing edema Discharge Data Studies Completed and Pending Completed Studies During Hospitalization Category Date Time Status CT kidney stone [id number] Stat Cat Scan 04/14/24 08:30 Completed US abdomen complete* [id number] Stat Ultrasound 04/14/24 08:51 Completed Pending at discharge Category Date Time Status Blood Culture Stat Lab 04/14/24 12:34 Results Radiology Impressions Abdomen/Pelvis CT 04/14/24 08:30 IMPRESSION: 1. Enlarged LEFT kidney with inflammatory stranding and edema compatible with pyelonephritis. Recommend correlation for UTI. 2. No obstructing renal or ureteral calculi. 3. 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 Abdomen Ultrasound 04/14/24 08:51 IMPRESSION: 1. Coarse hepatic echogenicity likely due to fatty infiltration. Liver size upper limits of normal. 2. Normal gallbladder. 3. Normal common bile duct. 4. No hydronephrosis in either kidney. 5. LEFT renal parenchymal calculus measuring 9 x 8 x 7 mm Laboratory Results WBC 4.11 10^3/uL (3.29-11.43) 04/16/24 03:00 RBC 3.63 10^6/uL (3.85-5.65) L 04/16/24 03:00 Hgb 11.00 g/dL (11.27-16.99) L 04/16/24 03:00 Hct 34.0 % (36-47) L 04/16/24 03:00 MCV 93.7 fl (85-98) 04/16/24 03:00 MCH 30.3 pg (27-33) 04/16/24 03:00 MCHC 32.4 g/dL (30-55) 04/16/24 03:00 RDW 12.8 % (12.1-15.1) 04/16/24 03:00 Plt Count 229 10^3/cmm (157-399) 04/16/24 03:00 MPV 10.0 fL (7.4-10.4) 04/16/24 03:00 Neut % (Auto) 44.1 % 04/16/24 03:00 Lymph % (Auto) 38.4 % 04/16/24 03:00 Reynolds % (Auto) 13.4 % 04/16/24 03:00 Eos % (Auto) 3.2 % 04/16/24 03:00 Baso % (Auto) 0.7 % 04/16/24 03:00 Neut # (Auto) 1.81 10^3/uL (1.8-7.7) 04/16/24 03:00 Lymph # (Auto) 1.6 10^3/uL (0.8-4.8) 04/16/24 03:00 Reynolds # (Auto) 0.6 10^3/uL (0.2-0.9) 04/16/24 03:00 Eos # (Auto) 0.1 10^3/uL (0.0-0.8) 04/16/24 03:00 Baso # (Auto) 0.0 10^3/uL (0.0-0.1) 04/16/24 03:00 Nucleated RBC % (auto) 0 % 04/16/24 03:00 Nucleated RBCs # 0.0 /100WBC 04/16/24 03:00 Sodium 140 mmol/L (136-145) 04/16/24 03:00 Potassium 3.7 mmol/L (3.5-5.1) 04/16/24 03:00 Chloride 108 mmol/L (98-107) H 04/16/24 03:00 Carbon Dioxide 22 mmol/L (22-29) 04/16/24 03:00 Anion Gap 13.7 (5-19) 04/16/24 03:00 BUN 4 mg/dL (6-20) L 04/16/24 03:00 Creatinine 0.4 mg/dL (0.5-0.9) L 04/16/24 03:00 GFR Calculation 179.6 mL/min (90-130) H 04/16/24 03:00 Glucose 131 mg/dL (65-115) H 04/16/24 03:00 Calculated Osmolality 289 mOsm/kg (285-295) 04/16/24 03:00 Calcium 8.4 mg/dL (8.5-10.5) L 04/16/24 03:00 Magnesium 1.7 mg/dL (1.7-2.3) 04/15/24 05:11 Total Bilirubin 0.3 mg/dL (0.15-1.2) 04/16/24 03:00 AST 79 U/L (0-32) H 04/16/24 03:00 ALT 185 U/L (0-33) H 04/16/24 03:00 Alkaline Phosphatase 241 U/L (35-105) H 04/16/24 03:00 Total Protein 6.0 g/dL (6.6-8.7) L 04/16/24 03:00 Albumin 3.2 g/dL (3.5-5.2) L 04/16/24 03:00 Globulin 2.8 g/dL (1.3-4.6) 04/16/24 03:00 TSH 0.33 uIU/mL (0.27-4.20) 04/14/24 08:10 HCG, Qual Negative (Negative) 04/14/24 08:10 Urine Color Dark yellow (Yellow) A 04/14/24 12:50 Urine Appearance Clear (CLEAR) 04/14/24 12:50 Urine pH 6.0 (5-7) 04/14/24 12:50 Ur Specific [place] 1.021 (1.005-1.030) 04/14/24 12:50 Urine Protein 1+ (Negative) A 04/14/24 12:50 Urine Glucose (UA) Negative (Normal) 04/14/24 12:50 Urine Ketones 1+ (Negative) H 04/14/24 12:50 Urine Blood Negative (Negative) 04/14/24 12:50 Urine Nitrate Positive (Negative) A 04/14/24 12:50 Urine Bilirubin 1+ (Negative) H 04/14/24 12:50 Urine Urobilinogen 1.0 mg/dL (Negative) 04/14/24 12:50 Ur Leukocyte Esterase Trace (Negative) A 04/14/24 12:50 Urine RBC 0-2 /hpf (0-2) 04/14/24 12:50 Urine WBC 6-10 /hpf (0-5) 04/14/24 12:50 Ur Squamous Epith Cells 6-10 /hpf (0-5) 04/14/24 12:50 Amorphous Sediment Not Reportable 04/14/24 12:50 Urine Bacteria 4+ /hpf (NONE) H 04/14/24 12:50 Hyaline Casts 0.40 /lpf 04/14/24 12:50 Hepatitis A IgM Ab Non-reactive (Nonreactive) 04/14/24 08:10 Hep Bs Antigen Non-reactive (Nonreactive) 04/14/24 08:10 Hep B Core IgM Ab Non-reactive (Nonreactive) 04/14/24 08:10 Hepatitis C Antibody Non-reactive (Nonreactive) 04/14/24 08:10 Vitals Last Vital Signs Temp 97.7 F 04/16/24 07:25 Pulse 95 04/16/24 07:25 Resp 18 04/16/24 08:03 BP 122/79 04/16/24 07:25 Pulse Ox 97 04/16/24 07:25 O2 Del Method Room Air 04/16/24 07:25 Discharge Plan Discharge Patient Disposition: Home Condition: Stable Prescriptions: New hydrocodone-acetaminophen 5-325 mg tablet 1 tab PO Q6H PRN (Reason: pain) Qty: 20 0RF ciprofloxacin HCl [Cipro] 500 mg tablet 500 mg PO BID Qty: 22 0RF Continued Effexor XR 37.5 mg Capsule,Extended Release 24hr 37.5 mg PO DAILY alprazolam 1 mg tablet 1 mg PO BEDTIME PRN (Reason: Anxiety) phentermine 37.5 mg tablet 37.5 mg PO QAM quetiapine 200 mg tablet extended release 24 hr 200 mg PO QPM Discharge Orders: Discharge Order (Routine); Ordered 04/16/24 Ordered By: Russell Morse Referrals: Amber Kiran DO [Primary Care Provider] - 4-7 days Discharge Diet: Usual diet Discharge Activity: Increase activity as tolerated Patient Instructions: Opioid Safety Activity Restrictions/Additional Instructions: Take all medicine as prescribed Encourage fluids Follow-up with your primary care provider regarding pyelonephritis in 3 to 5 days, return for any concerns Monitor for any significant diarrhea. If this occurs notify your primary care provider. Discharge Attestations Time Spent in Discharge Care*: greater than 30 min Quality Metrics Clinical Quality Measures [ No reported AMI, CVA or VTE this stay] Coding Level of Care Code 56346 Total time (in minutes) for Discharge: 31 Diagnoses Acute pyelonephritis N10 Time Spent (min) 31
== END 2024-04-16 13:40 | disposition home or self-care (01) | DRG 690 ==
LOC: ER 12:42 → MEDSURG 14:51
PROVIDERS: Admitting Provider Internal Medicine; Emergency Provider Family Medicine; PCP Family Medicine; Visit Provider Internal Medicine
DX: N10 Acute pyelonephritis (principal); D17.71 Benign lipomatous neoplasm of kidney; B96.20 Unspecified Escherichia coli [E. coli] as the cause of diseases classified elsewhere; F32.A Depression, unspecified; F41.9 Anxiety disorder, unspecified; R74.01 Elevation of levels of liver transaminase levels
CPT/HCPCS: 36415; 74176; 76700; 80053; 80074; 81003; 81015; 83735; 84443; 84703; 85025; 87040; 87077; 87086; 87186; 96374; 96375; 96376; 99285; J0696; J1170; J2270; J2405; J7030

== ENCOUNTER 2025-06-21 18:04 | Emergency (ER) | payer SELFPAY ==
[2025-06-21 18:08] VITALS: BP 110/76; PULSE 102; TEMP 36.9; O2SAT 100; BMI 28.0
--- NOTE | 2025-06-21 18:08 | XRR_ITS ---
PROCEDURE INFORMATION: Exam: XR Abdomen Exam date and time: 06/21/2025 6:15 PM Age: 40 years old Clinical indication: Constipation; Additional info: Abd pain TECHNIQUE: Imaging protocol: Radiologic exam of the abdomen. Views: Frontal supine view of the abdomen. 1 View. COMPARISON: CT kidney stone [id number] 04/14/2024 9:54 AM FINDINGS: Gastrointestinal tract: Normal. No bowel dilation. Bones/joints: Unremarkable. XR/XR abdomen 1V* [id number] IMPRESSION: No acute findings.
--- OUTSIDE RECORDS SUMMARY | 2025-06-21 18:11 | XMS_ITS | Clinical Summary ---
Author Organization [facility] Address [address] Markn: Epic Prelude ADT [place] [id number] Care Team Providers Care Infection Prevention Coordinator Name Role Phone Amber Kiran DO Primary Care Provider Allergies No known active allergies Medications venlafaxine (Effexor XR) 75 mg Extended Release 24 hour capsuleIndicat ions:Generaliz ed anxiety disorder Take 1 Capsule (75 mg) by mouth daily. 90 Capsule 3 07/15/20 24 Active QUEtiapine (SEROquel XR) 400 mg Extended Release 24 hour tablet Take 1 Tablet (400 mg) by mouth late in the day. 90 Tablet 4 03/08/20 25 Active ALPRAZolam (XANAX) 1 mg tabletIndicati ons:Generalize d anxiety disorder TAKE ONE TABLET BY MOUTH TWICE DAILY NEEDED FOR ANXIETY. 60 Tablet 2 06/13/20 25 Active phentermine (ADIPEX P) 37.5 mg tabletIndicati ons:Weight gain TAKE ONE TABLET BY MOUTH DAILY BEFORE BREAKFAST 30 Tablet 2 06/13/20 25 Active ALPRAZolam (XANAX) 1 mg tabletIndicati ons:Generalize d anxiety disorder Take 1 Tablet (1 mg) by mouth 2 times daily as needed for Anxiety. 60 Tablet 2 03/08/20 25 025 Discontinued phentermine (ADIPEX P) 37.5 mg tabletIndicati ons:Weight gain Take 1 Tablet (37.5 mg) by mouth daily before breakfast. 30 Tablet 2 03/08/20 25 025 Discontinued Active Problems Problem Noted Date Diagnosed Date Generalized anxiety disorder 05/21/2021 Encounters Date Type Department Care Team Description 06/12/2025 Refill [facility] [address] [place] [phone] Amber Kiran DO Generalized anxiety disorder; Weight gain 05/04/2025 External Device Data [facility] ABSTRACTION Provider, Abstract 05/03/2025 External Device Data [facility] Provider, Abstract 04/19/2025 External Device Data [facility]CTION Provider, Abstract 03/30/2025 External Device Data [facility] Provider, Abstract 03/30/2025 External Device Data [facility]CTION Provider, Abstract from Last 3 Months Immunizations Immunization Administration Dates Next Due (ADACEL/BOOSTRIX)(10 YR UP) TDAP VACCINE, 0.5ML, IM 06/25/2021 Family History Medical History Relation Name Comments Hypertension Father Jimmy stoll Cancer Maternal Grandfather Virginia collins He pass ed away. Several of my family have Anemia Mother Haven mullins Anemia Paternal Grandmother Essence riggs Anemia Sister 1 Haylee dodie Depression Sister 1 Haylee dodie As far as i kn ow all my siblings and parents Depression Sister 2 Haylee dodie As far as i kn ow all my siblings and parents Relation Name Status Comments Father Jimmy stoll Alive Maternal Grandfather Virginia collins Alive Mother Haven mullnis Alive Paternal Grandmother Essence riggs Sister 1 Haylee dodie Sister 2 Haylee dodie Alive Social History Tobacco Use Types Packs/Day Years Used Date Smoking Tobacco: Former Cigarettes 1 20 Passive Smoke Exposure: Past Smokeless Tobacco: Never Tobacco Cessation:Counseling Given: No Alcohol Use Standard Drinks/Week Comments Not Currently 0 (1 standard drink = 0.6 oz pur e alcohol) Comments No Sex and Gender Information Value Date Recorded Sex Assigned at Not on file Legal Sex Female 9:23 PM YARN EXAMINER Gender Identity Not on file Sexual Orientation Not on file Last Filed Vital Signs Vital Sign Reading Time Taken Comments Blood Pressure 122/70 03/08/2025 9:25 AM CDT Pulse 121 03/08/2025 9:25 AM CDT Temperature 36.9 C (98.4 F) 03/08/2025 9:25 AM CDT Respiratory Rate 18 07/15/2024 8:00 AM CDT Oxygen Saturation 98% 03/08/2025 9:25 AM CDT Inhaled Oxygen Concentration - - Weight 83.2 kg (183 lb 8 oz) 03/08/2025 9:25 AM CDT Height 165.1 cm (5' 5 ) 03/08/2025 9:25 AM CDT s tated Body Mass Index 30.54 03/08/2025 9:25 AM CDT Plan of Treatment Upcoming Encounters Date Type Department Care Team (Late st Contact Info) Description 09/07/2025 9:40 AM YARN EXAMINER Office Visit [facility] [address] [place] [phone] Amber Kiran, [address] [place] [phone] Health Maintenance Due Date Last Done Comments Pre-Diabetes and Diabetes Screening 1987 HEPATITIS B VACCINES (1 of 3 - 19+ 3-dose series) 2006 HPV/Cotest (21-29) 2008 HPV VACCINES (1 - 3-dose SCDM series) 2014 CERVICAL CANCER SCREENING 2017 HPV/Cotest (30-65) 2017 PAP SMEAR 2017 Preventative Visit- Commercial 09/15/2024 INFLUENZA VACCINE (#1) 2025 06/12/2022, 2020 DTAP/TDAP/TD VACCINES (2 - Td or Tdap) 06/25/2031 Insurance MEDICA BALANCE [facility] EXCHANGE [id number] [address] [id number] Care Teams Infection Prevention Coordinator Relationship Specialty Start Date End Date Amber Kiran DO [address] [place] [phone] PCP - General Family Practice 04/10/22
[2025-06-21 18:26] VITALS: BP 99/69; PULSE 118; O2SAT 100
--- NOTE | 2025-06-21 18:26 | PC.NURSE ---
Pt states she is taking Ozempic pt states she gets it from [place] it's cheaper .
[2025-06-21 18:42] LABS: Hematocrit 41.5 % (36-47); Hemoglobin 14.00 g/dL (11.27-16.99); Mean Corpuscular HGB Conc 33.7 g/dL (30-55); Mean Corpuscular Hemoglobin 29.7 pg (27-33); Mean Corpuscular Volume 88.1 fl (85-98); Nucleated Red Blood Cells % 0 %; Platelet Count 334 10^3/cmm (157-399); Red Blood Count 4.71 10^6/uL (3.85-5.65); White Blood Count 5.20 10^3/uL (3.29-11.43)
--- NOTE | 2025-06-21 18:46 | W.ED.ABDPA2 ---
HPI - Abdominal Pain General: Chief Complaint: Abdominal Pain Stated Complaint: abd Pain, Rectal bleeding, Swollen Hemorrhoids Time Seen by Provider: 06/21/25 18:08 Source: patient Mode of arrival: ambulatory Limitations: no limitations History of Present Illness: Patient is a 40-year-old female who presents to the emergency department complaining of rectal pain for the past 5 days. States that she has been constipated, has taken numerous [id number] medications but thinks that in the straining she has caused a flareup of her hemorrhoid. She states that family members at home took a look at her rectal region and states that there is a large infected looking hemorrhoid. Notes a history of hemorrhoids, states that she has had difficulty peeing due to the pain. States this is the worst pain she is ever been in, 06/24. She is tearful at this time secondary to the pain, reports nausea every time she goes to have a bowel movement but no vomiting. Reports rectal bleeding as well. She reports the feeling that she has torn her rectum open. Vitals overall stable she is mildly tachycardic likely secondary to pain. MD elicited complaint: other (rectal pain) Pertinent past history: other (hemorrhoids) Onset (ago): day(s) (5) Pain Consistency: constant Severity: severe Pain scale (0-10): 10 Exacerbating factors: bowel movement Associated Symptoms: Reports constipation, hematochezia and nausea; Denies bloating, chills, diarrhea, dysuria, fever(s) and vomiting Related Data Home Medications ?Medication ?Instructions ?Recorded ?Confirmed alprazolam 1 mg tablet 1 mg PO BEDTIME PRN Anxiety 04/14/24 04/14/24 phentermine 37.5 mg tablet 37.5 mg PO QAM 04/14/24 04/14/24 quetiapine 200 mg tablet,extended 200 mg PO QPM 04/14/24 04/14/24 release 24 hr venlafaxine 37.5 mg 37.5 mg PO DAILY 04/14/24 04/14/24 capsule,extended release 24 hr (Effexor XR) Previous Rx's ?Medication ?Instructions ?Recorded ciprofloxacin HCl 500 mg tablet 500 mg PO BID #22 tabs 04/16/24 (Cipro) hydrocodone 5 mg-acetaminophen 325 1 tab PO Q6H PRN pain #20 tabs 04/16/24 mg tablet hydrocortisone 1 % topical cream 1 applic topical BID PRN 06/21/25 hemorrhoids #28.35 grams polyethylene glycol 3350 17 4 g PO DAILY #119 grams 06/21/25 gram/dose oral powder (Miralax) Allergies Allergy/AdvReac Type Severity Reaction Status Date / Time No Known Allergies Allergy Verified 06/21/25 18:13 Review of Systems General: Reports: 10 or more systems reviewed and unremarkable except in HPI and below Const: Denies: fever(s), chills, change in appetite, change in weight or diaphoresis ENMT: Denies: throat pain or hoarseness Card: Denies: chest pain, palpitations or lightheadedness Resp: Denies: dyspnea, productive cough or wheezing GI: Reports: abdominal pain, nausea, constipation, pain on defecation, rectal pain, rectal swelling and hematochezia; Denies: vomiting, diarrhea or bloating : Denies: flank pain, difficulty voiding, dysuria, urinary frequency or urinary urgency Musc: Denies: neck pain or back pain Skin/Breast: Denies: rash or new lesions Neuro: Denies: headache(s) or dizziness PFSH ED PFSH: Medical History Depression with anxiety Surgical History No significant past surgical history Family History Other Cancer Social History Smoking and tobacco/nicotine status: former use of tobacco/nicotine Alcohol intake: current Alcohol intake frequency: 0-2 Drinks per Day Substance/Drug Use: current Physical Exam Const: COMMON NORMALS: patient oriented x3, no limitations, alert and well nourished GENERAL APPEARANCE: cooperative ORIENTATION/CONSCIOUSNESS: Yes awake OTHER: anxious. tearful Neck/C-Spine: COMMON NORMALS: full ROM, supple, no meningeal signs and no JVD Resp: COMMON NORMALS: normal respiratory effort, No retractions, No use of accessory muscles and clear to auscultation bilaterally AUSCULTATION: clear to auscultation bilaterally, no crackles, no rales, no rhonchi and no wheezes Cardio: COMMON NORMALS: no JVD, regular rate, regular rhythm, No gallops present (Cardio), No clicks present (Cardio), No murmurs present (Cardio), No rub (Cardio) and Peripheral pulses 2+ throughout RATE: regular rate RHYTHM: regular rhythm PERIPHERAL PULSES: Peripheral pulses 2+ throughout GI: COMMON NORMALS: Normal to inspection, nondistended, normoactive bowel sounds present, Soft to palpation, non-tender, No hepatosplenomegaly present and no masses AUSCULTATION: Yes normoactive bowel sounds PALPATION: Yes Soft to palpation, No Guarding due to palpation present (GI), No Rigid due to palpation and Yes No hepatosplenomegaly present OTHER: External hemorrhoids, no incarceration or thrombosed hemorrhoids noted at this time. Severe tenderness to palpation to the rectum Extremity: COMMON NORMALS: normal to inspection and full ROM Neuro: COMMON NORMALS: patient oriented x3, moves all extremities, no focal motor deficits and no sensory deficits noted SENSORIUM/ORIENTATION: Yes alert MENINGEAL SIGNS: Yes no meningeal signs Psych: COMMON NORMALS: mental status grossly normal, cooperative and speech normal SPEECH: Yes normal speech Skin: COMMON NORMALS: no rashes or lesions noted GENERAL SKIN EXAM: no rashes or lesions noted Course Vital Signs: Vital signs: Vital Signs Temperature 98.5 F 06/21/25 18:08 Pulse Rate 118 H 06/21/25 18:26 Respiratory Rate 16 06/21/25 19:02 Blood Pressure 99/69 06/21/25 18:26 Pulse Oximetry 100 06/21/25 19:02 Oxygen Delivery Me thod Room Air 06/21/25 18:26 MDM - Abdominal Pain Medical Decision Making Patient presenting with severe rectal pain and bleeding, on exam there are external hemorrhoids which do not appear thrombosed or incarcerated. She had noted some nausea and lower abdominal pain as well, and though she appeared in distress secondary to pain she did not appear toxic. Blood work was reassuring as well. Suspect this is internal hemorrhoid, she has almost complete amelioration of symptoms after fentanyl and Zofran here in the emergency department, will treat with topical hydrocortisone and MiraLAX, refer her to GI for further evaluation and she is given general return precautions. Lab Data 06/21/25 18:30 06/21/25 18:30 Labs/Radiology: Radiology Impressions Abdomen X-Ray 06/21/25 18:08 IMPRESSION: No acute findings. Abdomen/Pelvis CT 06/21/25 18:54 IMPRESSION: Liquefied stool burden throughout the colon. No suggestion of acute abnormality in the abdomen or pelvis. COMMENTS: Consistent with the [employer]'s Incidental Findings Committee white paper (J Am Charlie Radiol 2018): Any incidental renal lesion less than 1 cm or classified as too small to characterize, or any incidental cystic renal lesion characterized as simple-appearing, is likely benign. No follow-up imaging is recommended for these lesions per consensus recommendations based on imaging criteria. Laboratory Results WBC 5.20 10^3/uL (3.29-11.43) 06/21/25 18:30 RBC 4.71 10^6/uL (3.85-5.65) 06/21/25 18:30 Hgb 14.00 g/dL (11.27-16.99) 06/21/25 18:30 Hct 41.5 % (36-47) 06/21/25 18:30 MCV 88.1 fl (85-98) 06/21/25 18:30 MCH 29.7 pg (27-33) 06/21/25 18:30 MCHC 33.7 g/dL (30-55) 06/21/25 18:30 RDW 12.1 % (12.1-15.1) 06/21/25 18:30 Plt Count 334 10^3/cmm (157-399) 06/21/25 18:30 MPV 9.5 fL (7.4-10.4) 06/21/25 18:30 Neut % (Auto) 37.1 % 06/21/25 18:30 Lymph % (Auto) 53.7 % 06/21/25 18:30 Duval % (Auto) 7.1 % 06/21/25 18:30 Eos % (Auto) 1.5 % 06/21/25 18:30 Baso % (Auto) 0.6 % 06/21/25 18:30 Neut # (Auto) 1.93 10^3/uL (1.8-7.7) 06/21/25 18:30 Lymph # (Auto) 2.8 10^3/uL (0.8-4.8) 06/21/25 18:30 Duval # (Auto) 0.4 10^3/uL (0.2-0.9) 06/21/25 18:30 Eos # (Auto) 0.1 10^3/uL (0.0-0.8) 06/21/25 18:30 Baso # (Auto) 0.0 10^3/uL (0.0-0.1) 06/21/25 18:30 Nucleated RBC % (auto) 0 % 06/21/25 18: Nucleated RBCs # 0.0 /100WBC 06/21/25 18:30 Sodium 142 mmol/L (136-145) 06/21/25 18:30 Potassium 3.4 mmol/L (3.5-5.1) L 06/21/25 18:30 Chloride 103 mmol/L (98-107) 06/21/25 18: Carbon Dioxide 24 mmol/L (22-29) 06/21/25 18:30 Anion Gap 18.4 (5-19) 06/21/25 18:30 BUN 11 mg/dL (6-20) 06/21/25 18:30 Creatinine 0.5 mg/dL (0.5-0.9) 06/21/25 18:30 GFR Calculation 138.1 mL/min (90-130) H 06/21/25 18:30 Glucose 66 mg/dL (65-115) 06/21/25 18:30 Calculated Osmolality 292 mOsm/kg (285-295) 06/21/25 18:30 Calcium 9.9 mg/dL (8.5-10.5) 06/21/25 18:30 Total Bilirubin 0.4 mg/dL (0.15-1.2) 06/21/25 18:30 AST 22 U/L (0-32) 06/21/25 18:30 ALT 31 U/L (0-33) 06/21/25 18:30 Alkaline Phosphatase 108 U/L (35-105) H 06/21/25 18:30 Total Protein 8.8 g/dL (6.6-8.7) H 06/21/25 18:30 Albumin 5.3 g/dL (3.5-5.2) H 06/21/25 18: Globulin 3.5 g/dL (1.3-4.6) 06/21/25 18:30 HCG, Qual Negative (Negative) 06/21/25 18:30 All radiology interpretation(s) finalized by discharge Discharge Plan Discharge Patient Disposition: Home Clinical Impression: Hemorrhoids Qualifiers: Hemorrhoid type: unspecified Qualified Code(s): K64.9 - Unspecified hemorrhoids Condition: Stable Prescriptions: New hydrocortisone 1 % cream 1 applic topical BID PRN (Reason: hemorrhoids) Qty: 28.35 0RF polyethylene glycol 3350 [Miralax] 17 gram/dose powder 4 g PO DAILY Qty: 119 0RF No Action Effexor XR 37.5 mg Capsule,Extended Release 24hr 37.5 mg PO DAILY alprazolam 1 mg tablet 1 mg PO BEDTIME PRN (Reason: Anxiety) phentermine 37.5 mg tablet 37.5 mg PO QAM quetiapine 200 mg tablet extended release 24 hr 200 mg PO QPM Cipro 500 mg tablet 500 mg PO BID Qty: 22 0RF hydrocodone-acetaminophen 5-325 mg tablet 1 tab PO Q6H PRN (Reason: pain) Qty: 20 0RF Discharge Orders: Discharge ED (Routine); Ordered 06/21/25 Ordered By: Jerrell Rivers Referrals: Amber Kiran DO [Primary Care Provider, Family Practice] Patient Instructions: Hemorrhoids (ED), Patient Portal & [facility] Instructions Activity Restrictions/Additional Instructions: Hemorrhoid Discharge Instructions Diagnosis: You have been diagnosed with internal hemorrhoids, a common condition caused by swollen blood vessels inside the rectum. Your lab tests and CT scan did not show any serious problems. What to Expect: Hemorrhoids can cause discomfort, itching, and sometimes bleeding. Most cases improve with simple treatments at home. Home Care Instructions: - Diet and Fluids: Eat more fiber (fruits, vegetables, whole grains) and drink 6?8 glasses of water daily. Aim for 20?30 grams of fiber each day. This helps soften your stool and makes bowel movements easier, reducing strain and hemorrhoid symptoms. - Bowel Habits: Avoid straining or sitting on the toilet for long periods. Try not to read or use your phone while on the toilet. Go when you feel the urge, but don?t force it. - Medications: Use the prescribed 1% hydrocortisone cream as directed to help with itching and swelling. MiraLAX (polyethylene glycol) can help keep your stools soft and regular. - Sitz Baths: Sit in warm water for 10?20 minutes, 1?2 times daily or after bowel movements, to relieve discomfort. Pat the area dry gently afterward. - Other Tips: Keep the anal area clean and dry. Avoid harsh soaps or wipes. Wear loose, comfortable clothing. When to Seek Help: Call your doctor or return to the emergency department if you have: - Heavy rectal bleeding - Severe pain not relieved by home care - Signs of infection (fever, redness, pus) - Trouble passing stool Follow-Up: You will be referred to general surgery for further evaluation. Most people improve with these measures, but if symptoms persist, other treatments may be discussed. Questions: If you have any questions or concerns, contact your healthcare provider. Take care and follow these instructions to help your symptoms improve. Print Language: Maori Coding Level of Care Code ED Electrophysiologist for Abel Owen
--- NOTE | 2025-06-21 18:54 | CTR_ITS ---
PROCEDURE INFORMATION: Exam: CT Abdomen And Pelvis With Contrast Exam date and time: 06/21/2025 7:17 PM Age: 40 years old Clinical indication: Abdominal pain; PT arrives pov C/O rectal pain and hemmorhoids. PT states she has been constipated and has been using otc meds and laxatives with not much releif. ; Additional info: Lower abd pain/severe rectal pain TECHNIQUE: Imaging protocol: Computed tomography of the abdomen and pelvis with contrast. Radiation optimization: All CT scans at this facility use at least one of these dose optimization techniques: automated exposure control; mA and/or kV adjustment per patient size (includes targeted exams where dose is matched to clinical indication); or iterative reconstruction. Contrast material: [id number]; Contrast volume: 100 ml; Contrast route: INTRAVENOUS (IV); COMPARISON: CT kidney stone [id number] 04/14/2024 9:54 AM RADIATION DOSE METRICS: Total DLP (mGy-cm): 499.53 FINDINGS: Liver: Normal. No mass. Gallbladder and biliary ducts: Normal. No calcified stones. No ductal dilation. Pancreas: Normal. No ductal dilation. Spleen: Normal. No splenomegaly. Adrenal glands: Normal. No mass. Kidneys and ureters: Too small to characterize likely simple cyst in the midpole of the left kidney measuring 5 mm. No hydronephrosis, hydroureter or nephrolithiasis in either kidney. Stomach and bowel: Liquefied stool burden mostly through the colon. No suggestion of acute abnormality in the abdomen or pelvis. Appendix: The appendix is normal. Intraperitoneal space: Unremarkable. No free air. No significant fluid collection. Vasculature: Unremarkable. No abdominal aortic aneurysm. Lymph nodes: Unremarkable. No enlarged lymph nodes. Urinary bladder: Unremarkable as visualized. Reproductive: Unremarkable as visualized. Bones/joints: Unremarkable. No acute fracture. Soft tissues: Unremarkable. CT/CT abdomen pelvis w con* [id number] IMPRESSION: Liquefied stool burden throughout the colon. No suggestion of acute abnormality in the abdomen or pelvis. COMMENTS: Consistent with the [employer]'s Incidental Findings Committee white paper (J Am Charlie Radiol 2018): Any incidental renal lesion less than 1 cm or classified as too small to characterize, or any incidental cystic renal lesion characterized as simple-appearing, is likely benign. No follow-up imaging is recommended for these lesions per consensus recommendations based on imaging criteria.
[2025-06-21 18:58] LABS: Alanine Aminotransferase 31 U/L (0-33); Albumin Level 5.3 g/dL (3.5-5.2); Alkaline Phosphatase 108 U/L (35-105); Anion Gap 18.4 (5-19); Aspartate Amino Transferase 22 U/L (0-32); Blood Urea Nitrogen 11 mg/dL (6-20); Calcium 9.9 mg/dL (8.5-10.5); Carbon Dioxide 24 mmol/L (22-29); Chloride 103 mmol/L (98-107); Creatinine Clr Calc Pharmacy 144.7582; Globulin 3.5 g/dL (1.3-4.6); Glucose 66 mg/dL (65-115); Osmolality Calculated 292 mOsm/kg (285-295); Potassium 3.4 mmol/L (3.5-5.1); Sodium 142 mmol/L (136-145); Total Protein 8.8 g/dL (6.6-8.7)
[2025-06-21 19:02] VITALS: RESP 16; O2SAT 100
[2025-06-21] MEDS: ondansetron 2 mg/ML SDV 2 mL 4 MG IVP (19:02)
[2025-06-21] MEDS: fentaNYL 50 mcg/mL INJ 2mL IVP (19:02)
[2025-06-21 19:06] LABS: HCG, Serum Qual Negative (Negative)
[2025-06-21] MEDS: iohexol 350 mg/mL 500 mL Btl (per mL) IV (19:20)
[2025-06-21 20:06] VITALS: RESP 16; O2SAT 99
[2025-06-21] MEDS: fentaNYL 50 mcg/mL INJ 2mL 25 MCG IVP (20:06)
[2025-06-21 20:12] VITALS: BP 108/77; PULSE 97; RESP 16; O2SAT 100
--- NOTE | 2025-06-22 10:17 | DCPLANNER ---
Referral sent to General Surgery
== END 2025-06-21 20:13 | disposition home or self-care (01) ==
PROVIDERS: Emergency Medicine; Emergency Provider Physician Assistant; PCP Family Medicine
DX: K64.9 Unspecified hemorrhoids (principal); Z87.891 Personal history of nicotine dependence
CPT/HCPCS: 36415; 74018; 74177; 80053; 84703; 85025; 96374; 96375; 96376; 99285; J2405; J3010

== ENCOUNTER 2025-07-21 09:06 | Day surgery (SDC) | payer OTHER, SELFPAY ==
[2025-07-21 09:25] VITALS: BP 111/84; PULSE 108; RESP 18; TEMP 36.3; O2SAT 100; BMI 27.4
[2025-07-21 09:31] LABS: OR HCG Qualitative Urine Negative (Negative)
--- NOTE | 2025-07-21 09:31 | P.HPUD_ITS ---
Surgery/Procedure H&P Update DATE OF PROCEDURE: July 21, 2025 DATE H&P PERFORMED: 07/12/25 H&P UPDATE INFORMATION: I have reviewed H&P completed within last 30 days, I have examined patient prior to procedure, No changes to prior documentation, H&P is in [facility] EMR on date indicated and Risks and benefits of the procedure reviewed PLANNED PROCEDURE: Operation Date: 07/21/25 12:00 Proposed Procedures p Colonoscopy [id number] G0105 K92.1(Not Applicable) - Jerrell Love MD
--- NOTE | 2025-07-21 10:58 | ANES.PREANE2 ---
Pre-Anesthetic Assessment Height/Weight: Height 1.6 m Weight 70.307 kg Temp Pulse Resp BP Pulse Ox O2 Del Method 97.4 F L 108 H 18 111/84 100 Room Air 07/21/25 09:25 07/21/25 09:25 07/21/25 09:25 07/21/25 09:25 07/21/25 09:25 07/21/25 09:25 Operation Date: 07/21/25 12:00 Proposed Procedures p Colonoscopy [id number] G0105 K92.1(Not Applicable) - Jerrell Love MD Familial anesthetic complications: None Was Beta Argelia taken within 24 hours: N/A Was Clonidine taken within 24 hours: N/A Last intake: Intake Last Liquid Date 07/20/25 Last Liquid Time 14:00 Last Solid Date 07/19/25 Last Solid Time 17:00 Social Tobacco (Vape, marijuana daily) and No alcohol Exam alert, oriented x 3, clear to auscultation bilaterally and regular rate & rhythm Airway Submandibular: within normal limits Cervical ROM: within normal limits Mallampati: Class II Dentition: full History/ROS No significant history except as noted and No significant complaints Pulmonary None reported CV/HEM None reported None reported Hepatic Was hospialized for liver issues 2 years ago. Liver enzymes returned to baseline per patient GI Gastroesophageal Reflux Disease (None this morning) Metabolic None reported Musc/skel None reported Neuropsych Anxiety, Depression and Headache Anesthetic Plan ASA status: 2 Anesthesia: Anesthesia Evaluation, General and MAC Risk of > 500 ml blood loss (7ml/kg in children): No Medications/Allergies Home Medications ?Medication ?Instructions ?Recorded ?Confirmed ?Last Taken ?Type alprazolam 1 mg tablet 1 mg PO BEDTIME PRN Anxiety 04/14/24 07/18/25 07/04/25 History phentermine 37.5 mg tablet 37.5 mg PO QAM 04/14/24 07/18/25 2 Months Ago History ~05/18/25 quetiapine 200 mg tablet,extended 200 mg PO QPM 04/14/24 07/18/25 07/19/25 History release 24 hr venlafaxine 37.5 mg 37.5 mg PO DAILY 04/14/24 07/18/25 07/18/25 History capsule,extended release 24 hr (Effexor XR) polyethylene glycol 3350 17 4 g PO DAILY #119 grams 06/21/25 07/18/25 3 Days Ago Rx gram/dose oral powder (Miralax) ~07/15/25 hydrocortisone 2.5 % topical cream 1 applic DE Q12H hemorrhoids 10 07/12/25 07/18/25 Unknown Rx with perineal applicator days #30 grams (Anusol-HC) ondansetron 8 mg disintegrating 8 mg PO Q8H PRN nausea and 07/12/25 07/18/25 07/21/25 04:00 Rx tablet vomiting #3 tabs semaglutide 1 mg/dose (4 mg/3 mL) See Rx Instructions .Route .COMPLEX 07/18/25 07/18/25 07/10/25 History subcutaneous pen injector (Ozempic) tirzepatide 2.5 mg/0.1 mL See Rx Instructions .Route .COMPLEX 07/18/25 07/18/25 07/10/25 History subcutaneous syringe Allergies Allergy/AdvReac Type Severity Reaction Status Date / Time No Known Allergies Allergy Verified 07/18/25 10:03 Current Medications Generic Name Dose Route Start Last Admin Trade Name Freq PRN Reason Stop Dose Admin Sodium Chloride 1,000 mls @ 15 mls/hr 07/21/25 09:17 07/21/25 09:37 Sodium Chloride 0.9% IV 07/22/25 09:16 15 mls/hr .Q24H PRN Administration COLONOSCOPY FLUIDS PFSH Anesthesia Medical History Depression with anxiety Surgical History No significant past surgical history Family History (Updated 07/12/25 @ 09:08 by Ria Rajan LPN) Father Congestive heart failure (CHF) COPD (chronic obstructive pulmonary disease) Mother Hx laparoscopic cholecystectomy Cancer of pituitary gland Other Cancer Social History Smoking and tobacco/nicotine status: never used tobacco/nicotine Alcohol intake: current Alcohol intake frequency: 0-2 Drinks per Day Substance/Drug Use: current Female Reproductive History Date of last menstrual period: 06/29/25
[2025-07-21 11:44] VITALS: BP 121/78; PULSE 112; RESP 16; TEMP 36.6; O2SAT 100
[2025-07-21 12:00] VITALS: BP 107/73; PULSE 92; RESP 16; O2SAT 99
--- NOTE | 2025-07-21 12:10 | ANE.PACU2 ---
Inpatient post-anesthesia follow up: Airway intact: Yes Vital signs: Temperature 97.9 F Pulse Rate 92 Respiratory Rate 16 Blood Pressure 107/73 Pulse Oximetry 99 Oxygen Delivery Me thod Room Air Oxygen Flow Rate Fraction of Inspir ed Oxygen Hydration adequate: Yes Nausea and vomiting: No Pain level: 1 Mental status: Baseline
== END 2025-07-21 12:10 | disposition home or self-care (01) ==
PROVIDERS: Student in an Organized Health Care Education/Training Program; PCP Family Medicine; Visit Provider Surgery
PROC: 0DJD8ZZ Inspection of Lower Intestinal Tract, Via Natural or Artificial Opening Endoscopic (ICD-10-PCS; CPT 45378; principal; 2025-07-21 12:00)
DX: K64.8 Other hemorrhoids (principal); K64.4 Residual hemorrhoidal skin tags; D12.5 Benign neoplasm of sigmoid colon; F41.8 Other specified anxiety disorders; K21.9 Gastro-esophageal reflux disease without esophagitis; Z80.8 Family history of malignant neoplasm of other organs or systems
CPT/HCPCS: 45380; 45385; 81025; 88305; J2250; J2405; J2704; J7030